=== PATIENT | male | born 1965 | race Two or more races ===

== ENCOUNTER 2025-02-11 10:04 | Inpatient (IN) | payer BC, OTHER ==
[~2025-02-11] VITALS: Ht 180.3 cm; Wt 100.3 kg
[2025-02-11 10:54] LABS: Hematocrit 46.6 % (41.0-53.0); Hemoglobin 16.0 g/dL (13.5-17.5); Mean Corpuscular Hemoglobin 29.7 pg (28.0-32.0); Mean Corpuscular Volume 86.3 fL (80.0-100.0); Nucleated Red Blood Cells % 0.1 %
[2025-02-11 11:01] LABS: Chloride 100 mmol/L (98-107); Potassium 3.7 mmol/L (3.5-5.1); Sodium 137 mmol/L (136-145)
[2025-02-11 11:02] LABS: Anion Gap 10 (5-15); Calcium 8.8 mg/dL (8.7-10.4); Carbon Dioxide 27 mmol/L (20-31)
[2025-02-11 11:07] LABS: BUN/Creatinine Ratio 12.4 (10.0-20.0); Blood Urea Nitrogen 11 mg/dL (9-23); Glucose 114 mg/dL (74-106)
--- NOTE | 2025-02-11 11:15 | ED.PDOC ---
GI ASSESSMENT HPI Comments 59 y/o M, with PMHx of CKF and HTN presents to the ED for CC of abdominal pain. Patient states, he has been experiencing diffuse abdominal pain with associated chills sudden onset, last night (02/10/25). Patient reports, he began to experience faint pain during the day which was then exacerbated following having dinner. Patient denies nausea, vomiting, diarrhea, or fever. No other symptoms or modifying factors are present at this time. Chief Complaint: Abdominal Pain Time Seen by MD: 11:00 Primary Care Provider: NONE Reviewed Notes: Nurses Notes, Medications, Allergies Allergies: Coded Allergies: NO KNOWN ALLERGIES (Unverified , 01/08/14) Home Meds No Active Prescriptions or Reported Meds Information Source: Patient Mode of Arrival: Ambulatory Timing: Days Duration: Since onset Prehospital treatment: None Quality: None Vomitus: None Severity: Moderate Recent: None Pain Location: Diffuse Modifying Factors: Nothing Associated sign and symptoms: Abdominal Pain Past Medical History PAST MEDICAL HISTORY: CKF, HTN Family History Family History: Unobtainable Social History Lives In: Home Constitutional: reports: chills; denies: diaphoresis, fatigue, fever, malaise, sweats, weakness, others EENTM: denies: blurred vision, double vision, ear bleeding, ear discharge, ear drainage, ear pain, ear ringing, eye pain, eye redness, hearing loss, mouth pain, mouth swelling, nasal discharge, nose bleeding, nose congestion, nose pain , photophobia, tearing, throat pain, throat swelling, voice changes, others Respiratory: denies: cough, hemoptysis, orthopnea, SOB at rest, shortness of breath, SOB with excertion, stridor, wheezing, others Cardiovascular: denies: chest pain, dizzy spells, diaphoresis, Dyspnea on exertion, edema, irregular heart beat, left arm pain, lightheadedness, palpitations, PND, syncope, others Gastrointestinal: reports: abdominal pain; denies: abdomen distended, blood streaked bowels, constipated, diarrhea, dysphagia, difficulty swallowing, hematemesis, melena, nausea, poor appetite, poor fluid intake, rectal bleeding, rectal pain, vomiting, others Genitourinary: denies: burning, dysuria, flank pain, frequency, hematuria, incontinence, penile discharge, penile sore, pain, testicle pain, testicle swelling, urgency, others Neurological: denies: dizziness, fainting, headache, left sided numbness, left sided weakness, numbness, paresthesia, pre-existing deficit, right sided numbness, right sided weakness, seizure, speech problems, tingling, tremors, weakness, others Musculoskeletal: denies: back pain, gout, joint pain, joint swelling, muscle pain, muscle stiffness, neck pain, others Integumetry: denies: bruises, change in color, change in hair/nails, dryness, laceration, lesions, lumps, rash, wounds, others Allergic/Immunocompromised: denies: Difficulty Healing, Frequent Infections, Hives, Itching, others Hematologic/Lymphatic: denies: anemia, blood clots, easy bleeding, easy bruising, swollen glands, others Endocrine: denies: excessive hunger, excessive sweating, excessive thirst, excessive urination, flushing, intolerance to cold, intolerance to heat, unexplained weight gain, unexplained weight loss, others Psychiatric: denies: anxiety, bipolar disorder, depression, hopeless, panic disorder, schizophrenia, sleepless, suicidal, others All Other Systems: Reviewed and Negative Physical Exam General Appearance: Moderate Distress HEENT: Normal ENT Inspection, Pharynx Normal, TMs Normal Neck: Full Range of Motion, Non-Tender, Normal, Normal Inspection Respiratory: Chest Non-Tender, Lungs Clear, No Accessory Muscle Use, No Respiratory Distress, Normal Breath Sounds Cardiovascular: No Edema, No JVD, No Murmur, No Gallop, Normal Peripheral Pulses, Regular Rate/Rhythm Breast Exam: Deferred Gastrointestinal: Diffuse Genitalia: Deferred Pelvic: Deferred Rectal: Deferred Extremities: No calf tenderness, Normal capillary refill, Normal inspection, Normal range of motion, Non-tender, No pedal edema Musculoskeletal : Apperance: Normal Neurologic: Alert, 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 Was a procedure done?: No GI differential Dx Differential Diagnosis: Constipation, Diverticular disease, Esophagitis, Gastritis/PUD, Gastroenteritis, Inflammatory BD X-Ray, Labs, Meds, VS Vital Signs Date Time Temp Pulse Resp B/P (MAP) Pulse Ox O2 Delivery O2 Flow Rate FiO2 02/11/25 14:30 98.4 80 18 124/54 (77) 96 98.4 02/11/25 14:30 80 18 96 Room Air 02/11/25 10:13 97.1 85 18 119/67 99 97.1 Lab Test 02/11/25 10:26 Range/Units White Blood Count 8.5 4.4-10.8 10^3/uL Red Blood Count 5.40 4.5-5.90 10^6/uL Hemoglobin 16.0 13.5-17.5 g/dL Hematocrit 46.6 41.0-53.0 % Mean Corpuscular Volume 86.3 80.0-100.0 fL Mean Corpuscular Hemoglobin 29.7 28.0-32.0 pg Mean Corpuscular Hemoglobin Concent 34.4 32.0-36.0 g/dL Red Cell Distribution Width 13.0 11.8-14.3 % Platelet Count 158 140-450 10^3/uL Mean Platelet Volume 10.0 6.9-10.8 fL Neutrophils (%) (Auto) 82.9 H 37.0-80.0 % Lymphocytes (%) (Auto) 9.5 L 10.0-50.0 % Monocytes (%) (Auto) 7.1 0.0-12.0 % Eosinophils (%) (Auto) 0.2 0.0-7.0 % Basophils (%) (Auto) 0.3 0.0-2.0 % Neutrophils # (Auto) 7.1 1.6-8.6 10 ^3/uL Lymphocytes # (Auto) 0.8 0.4-5.4 10 ^3/uL Monocytes # (Auto) 0.6 0-1.3 10 ^3/uL Eosinophils # (Auto) 0 0-0.8 10 ^3/uL Basophils # (Auto) 0 0-0.2 10 ^3/uL Nucleated Red Blood Cells 0.1 % Sodium Level 137 136-145 mmol/L Potassium Level 3.7 3.5-5.1 mmol/L Chloride Level 100 98-107 mmol/L Carbon Dioxide Level 27 20-31 mmol/L Anion Gap 10 5-15 Blood Urea Nitrogen 11 9-23 mg/dL Creatinine 0.89 0.700-1.30 mg/dL Glomerular Filtration Rate Calc 99 >90 mL/min BUN/Creatinine Ratio 12.4 10.0-20.0 Serum Glucose 114 H 74-106 mg/dL Calcium Level 8.8 8.7-10.4 mg/dL Patient alert. Complaining of abdominal pain. Vitals stable. Answering questions. Abdomen is soft. Continues to have abdominal pain. CT scan of the abdomen reviewed panniculitis Explained to the patient. Continue monitoring. Time of 1ST Reevaluation: 11:30 Reevaluation 1ST: Unchanged Patient Education/Counseling: Diagnosis, Treatment Family Education/Counseling: No Family Present SEPSIS Sepsis Screen Date sepsis recognized/suspect: Feb 11, 2025 Time Sepsis recognized/suspect: 101 Recent Procedure: No On Antibiotic Therapy: No Respiratory Rate >20: No Heart Rate >90: No Temp<36 C (96.8 F) or >38.3 C: No SBP <90 or MAP <65 mmHG: No New Acute Mental Status Change: No Is the patient on CPAP, BIPAP,: No Physician Orders Ct Ab Pel Wo Con-No Oral Or Iv (02/11/25 14:28) Vital Signs Date Time Temp Pulse Resp B/P (MAP) Pulse Ox O2 Delivery O2 Flow Rate FiO2 02/11/25 14:30 98.4 80 18 124/54 (77) 96 98.4 02/11/25 14:30 80 18 96 Room Air 02/11/25 10:13 97.1 85 18 119/67 99 97.1 Laboratory Tests Test 02/11/25 10:26 White Blood Count 8.5 10^3/uL (4.4-10.8) Departure 1 Departure Time of Disposition: 16:20 Impression: Primary Impression: Acute abdominal pain Additional Impression: Panniculitis Disposition: ADMITTED INPATIENT Admit to: Med Surg Condition: Guarded e-Prescriptions No Active Prescriptions or Reported Meds Critical Care Note Critical Care Time?: No Stability Stability form required: No Heart Score Heart Score: Heart Score Response (Comments) Value History N/A 0 EKG N/A 0 Age N/A 0 Risk Factors N/A 0 Troponin N/A 0 Total 0 I personally scribed for MAXIMILIANO JOYNER MD ([email or web address]) on 02/11/25 at 11:15. Electronically submitted by Tamia Middleton [email or web address]). MAXIMILIANO JOYNER MD Feb 11, 2025 11:15
--- NOTE | 2025-02-11 15:11 | DVH ---
CLINICAL HISTORY: colitis TECHNIQUE: CT of the abdomen and pelvis was performed without IV contrast. This exam was performed ac cording to our departmental dose optimization program. Up-to-date CT equipment and radiation dose red uction techniques are utilized as appropriate. CTDI 19.9 DLP 1309 COMPARISON: None FINDINGS: Abdomen/Pelvis: The spleen, pancreas, adrenal glands, kidneys, bladder, and prostate gland are grossly unremarkable. There is diffuse hepatic steatosis. The gallbladder is absent. The abdominal aorta is normal in course and caliber. There are minimal aortic atherosclerotic calcifi cations. There is no free intraperitoneal air or fluid. There is [id number] inflammation within the mese ntery. There is no enlarged abdominal pelvic lymph node. There is no bowel wall thickening or dilatation. The appendix is normal. Other: The imaged lower thorax demonstrates borderline cardiomegaly and breathing changes. No acute osseous abnormality is evident. Impression: No acute noncontrast CT abnormality in the abdomen or pelvis. Diffuse hepatic steatosis. Mesenteric panniculitis. Cholecystectomy.
[2025-02-11] MEDS ORDERED: ONDANSETRON HCL 4 MG/2 ML VIAL IV PRN (17:00)
[2025-02-11] MEDS ORDERED: ACETAMINOPHEN 325 MG TAB PO PRN (17:00)
--- NOTE | 2025-02-11 18:09 | DVHHP2 ---
History of Present Illness Reason for Visit: Abdominal pain History of Present Illness 9-year-old male presents for evaluation of abdominal pain. Patient endorses a one day history of epigastric abdominal pain that radiates to his left lower quadrant. Describes the pain as sharp/cramping/bloating. He also associates episodes of nausea without emesis. No fever or chills. No diarrhea. Past Medical History Denies Past Surgical History Denies Family History Noncontributory Smoke: No ALCOHOL: occassional Drugs: None Lives: with Family Review of Systems Review of Systems Review of systems are currently negative otherwise addressed in HPI. Allergies: Coded Allergies: NO KNOWN ALLERGIES (Unverified , 01/08/14) Medications Current Medications Medications Dose Ordered Sig/Deuce Route Start Time Stop Time Status Last Admin Dose Admin Ceftriaxone Sodium 50 ml @ 100 mls/hr DAILY@09 IV 02/12/25 09:00 Pantoprazole Sodium 40 mg DAILY IV 02/12/25 10:00 Acetaminophen/ Hydrocodone Bitart 1 tab Q4HP PRN PO 02/11/25 17:00 Ondansetron HCl 4 mg Q4HP PRN IV 02/11/25 17:00 Acetaminophen 650 mg Q6HP PRN PO 02/11/25 17:00 Exam Vital Signs Vital Signs Date Time Temp Pulse Resp B/P (MAP) Pulse Ox O2 Delivery O2 Flow Rate FiO2 02/11/25 17:45 98.0 75 20 110/72 (85) 96 98.0 02/11/25 14:30 Room Air Exam Gen: 59-year-old male in mild distress Skin: Warm, dry, normal color and texture, no rash. HEENT: Normocephalic atraumatic, mucous membranes moist and pink. Neck: Cervical and supraclavicular nodes normal without enlargement, trachea is midline, thyroid gland is normal without masses. Pulmonary: Clear to auscultation and percussion bilaterally. Cardiac: Regular rate and rhythm. No murmur Abdomen: Soft, nontender, nondistended, bowel sounds present all 4 quadrants, no guarding, no rigidity, no organomegaly. Extremities: No cyanosis, clubbing, no edema Neuro: Cranial nerves II through XII grossly intact, normal affect and speech, no focal motor deficits. Labs/Xrays ORDERING PHYSICIAN: MAXIMILIANO JOYNER MD PROCEDURE(s): ABPL - CT AB PEL WO CON-NO ORAL OR IV REASON: colitis ORDER NUMBER(s): [id number], ACCESSION NUMBER(s): [id number] CLINICAL HISTORY: colitis TECHNIQUE: CT of the abdomen and pelvis was performed without IV contrast. This exam was performed according to our departmental dose optimization program. Up-to-date CT equipment and radiation dose reduction techniques are utilized as appropriate. CTDI 19.9 DLP 1309 COMPARISON: None FINDINGS: Abdomen/Pelvis: The spleen, pancreas, adrenal glands, kidneys, bladder, and prostate gland are grossly unremarkable. There is diffuse hepatic steatosis. The gallbladder is absent. The abdominal aorta is normal in course and caliber. There are minimal aortic atherosclerotic calcifications. There is no free intraperitoneal air or fluid. There is zucv-ob-gkevhhie inflammation within the mesentery. There is no enlarged abdominal pelvic lymph node. There is no bowel wall thickening or dilatation. The appendix is normal. Other: The imaged lower thorax demonstrates borderline cardiomegaly and breathing changes. No acute osseous abnormality is evident. Impression: No acute noncontrast CT abnormality in the abdomen or pelvis. Diffuse hepatic steatosis. Mesenteric panniculitis. Cholecystectomy. Labs Test 02/11/25 10:26 Range/Units White Blood Count 8.5 4.4-10.8 10^3/uL Red Blood Count 5.40 4.5-5.90 10^6/uL Hemoglobin 16.0 13.5-17.5 g/dL Hematocrit 46.6 41.0-53.0 % Mean Corpuscular Volume 86.3 80.0-100.0 fL Mean Corpuscular Hemoglobin 29.7 28.0-32.0 pg Mean Corpuscular Hemoglobin Concent 34.4 32.0-36.0 g/dL Red Cell Distribution Width 13.0 11.8-14.3 % Platelet Count 158 140-450 10^3/uL Mean Platelet Volume 10.0 6.9-10.8 fL Neutrophils (%) (Auto) 82.9 H 37.0-80.0 % Lymphocytes (%) (Auto) 9.5 L 10.0-50.0 % Monocytes (%) (Auto) 7.1 0.0-12.0 % Eosinophils (%) (Auto) 0.2 0.0-7.0 % Basophils (%) (Auto) 0.3 0.0-2.0 % Neutrophils # (Auto) 7.1 1.6-8.6 10 ^3/uL Lymphocytes # (Auto) 0.8 0.4-5.4 10 ^3/uL Monocytes # (Auto) 0.6 0-1.3 10 ^3/uL Eosinophils # (Auto) 0 0-0.8 10 ^3/uL Basophils # (Auto) 0 0-0.2 10 ^3/uL Nucleated Red Blood Cells 0.1 % Sodium Level 137 136-145 mmol/L Potassium Level 3.7 3.5-5.1 mmol/L Chloride Level 100 98-107 mmol/L Carbon Dioxide Level 27 20-31 mmol/L Anion Gap 10 5-15 Blood Urea Nitrogen 11 9-23 mg/dL Creatinine 0.89 0.700-1.30 mg/dL Glomerular Filtration Rate Calc 99 >90 mL/min BUN/Creatinine Ratio 12.4 10.0-20.0 Serum Glucose 114 H 74-106 mg/dL Calcium Level 8.8 8.7-10.4 mg/dL SEPSIS Sepsis Screen Date sepsis recognized/suspect: Feb 11, 2025 Time Sepsis recognized/suspect: 1745 Recent Procedure: No On Antibiotic Therapy: No Respiratory Rate >20: No Heart Rate >90: No Temp<36 C (96.8 F) or >38.3 C: No SBP <90 or MAP <65 mmHG: No New Acute Mental Status Change: No Is the patient on CPAP, BIPAP,: No Physician Orders Ct Ab Pel Wo Con-No Oral Or Iv (02/11/25 14:28) Ceftriaxone 1gm/50ml (Rocephin) (02/12/25 09:00) * Gi Dvh Roof Truss Detailer (02/11/25 16:59) Pantoprazole (Protonix) (02/12/25 10:00) Basic Metabolic Panel (02/12/25 04:00) Lipase (02/11/25 16:59) Admit (02/11/25 16:59) Hydrocodone-Acet 5/325mg Tab ([place] 5/32 (02/11/25 17:00) Ondansetron Hcl (Zofran) (02/11/25 17:00) Complete Blood Count (02/12/25 04:00) Condition: Stable (02/11/25 16:59) Acetaminophen Tablet (Tylenol Tablet) (02/11/25 17:00) Clear Liq Diet (02/11/25 Dinner) Bedrest With Bathroom Privileg (02/11/25 16:59) Vital Signs Date Time Temp Pulse Resp B/P (MAP) Pulse Ox O2 Delivery O2 Flow Rate FiO2 02/11/25 17:45 98.0 75 20 110/72 (85) 96 98.0 02/11/25 14:30 98.4 80 18 124/54 (77) 96 98.4 02/11/25 14:30 80 18 96 Room Air 02/11/25 10:13 97.1 85 18 119/67 99 97.1 Laboratory Tests Test 02/11/25 10:26 White Blood Count 8.5 10^3/uL (4.4-10.8) Assessment/Plan Assessment/Plan Assessment Acute abdominal pain Plan Admit the patient to [facility] to the hospitalist Clear liquid diet GI consultation Maintenance IV fluids Protonix/Zofran Continue treatment per orders. Plan discussed with: Patient My Orders Orders - MABEL DEWITT AGATERESA Procedure Category Date Status Time Ceftriaxone 1gm/50ml PHA 02/12/25 In Process (Rocephin) 09:00 * Gi Dvh Roof Truss Detailer CONS 02/11/25 Transmitted 16:59 Pantoprazole PHA 02/12/25 In Process (Protonix) 10:00 Basic Metabolic Panel LAB 02/12/25 Verified 04:00 Lipase LAB 02/11/25 In Process 16:59 Admit ADMIT 02/11/25 Transmitted 16:59 Hydrocodone-Acet PHA 02/11/25 In Process 5/325mg Tab ([place] 17:00 Ondansetron Hcl PHA 02/11/25 In Process (Zofran) 17:00 Complete Blood Count LAB 02/12/25 Verified 04:00 Condition: Stable BEN 02/11/25 In Process 16:59 Acetaminophen Tablet PHA 02/11/25 In Process (Tylenol Tablet) 17:00 Clear Liq Diet DIET 02/11/25 Transmitted Dinner Bedrest With Bathroom BEN 02/11/25 In Process Privileg 16:59 Date of Service: Feb 11, 2025 Billing Provider: MABEL DEWITT Common Visit Codes: [id number] INP/OBS CARE (MOD) MABEL DEWITT Feb 11, 2025 18:09
[2025-02-11 18:34] VITALS: BP 110/69; PULSE 69; RESP 18; TEMP 99.2; O2SAT 98
[2025-02-11] MEDS: PANTOPRAZOLE 40 MG/10 ML VIAL INJ IV ONE (18:54)
[2025-02-11 21:00] VITALS: BP 138/70; PULSE 65; RESP 18; TEMP 98.9; O2SAT 96
[2025-02-11] MEDS: HYDROcodone-ACET 5/325MG TAB PO PRN (23:03)
[2025-02-11 23:10] VITALS: BP 116/63; PULSE 54; RESP 17; TEMP 97.3; O2SAT 96
[2025-02-12 00:33] VITALS: BP 116/63; PULSE 54; PULSE 57; RESP 17; TEMP 97.3; O2SAT 96
[2025-02-12 05:00] VITALS: BP 129/82; PULSE 47; RESP 18; TEMP 97.2; O2SAT 100
[2025-02-12 07:44] LABS: Hematocrit 45.3 % (41.0-53.0); Hemoglobin 15.6 g/dL (13.5-17.5); Mean Corpuscular Hemoglobin 29.5 pg (28.0-32.0); Mean Corpuscular Volume 85.6 fL (80.0-100.0); Nucleated Red Blood Cells % 0.2 %
[2025-02-12 07:56] LABS: Chloride 101 mmol/L (98-107); Potassium 4.7 mmol/L (3.5-5.1); Sodium 139 mmol/L (136-145)
[2025-02-12 07:57] LABS: Anion Gap 7 (5-15); Calcium 8.8 mg/dL (8.7-10.4); Carbon Dioxide 31 mmol/L (20-31)
[2025-02-12 08:02] LABS: BUN/Creatinine Ratio 13.5 (10.0-20.0); Blood Urea Nitrogen 12 mg/dL (9-23); Glucose 92 mg/dL (74-106)
[2025-02-12 09:00] VITALS: BP 151/87; PULSE 50; RESP 16; TEMP 97; O2SAT 95
[2025-02-12] MEDS: PANTOPRAZOLE 40 MG/10 ML VIAL INJ IV SCH (09:45)
[2025-02-12 13:00] VITALS: BP 122/80; PULSE 50; RESP 18; TEMP 98.8; O2SAT 97
--- NOTE | 2025-02-12 19:31 | DVHINCON2 ---
Date of service: Feb 12, [address] Esteban Reason for Consultation Abdominal pain History of Present Illness 59-year-old male with complaints of Abdominal pain in the epigastric area since since dinner denies nausea vomiting diarrhea the pain has been progressively getting worse the pain has been going on for about three months and has got complaints of abdominal distention and anorexia Past Medical History Chronic renal failure hypertension Past Surgical History Cholecystectomy Family History: Alcoholism Family History Noncontributory Social History Denies any drinking or smoking Allergies: Coded Allergies: NO KNOWN ALLERGIES (Unverified , 01/08/14) Home Meds No Active Prescriptions or Reported Meds Current Medications Current Medications Medications (Trade) Dose Ordered Sig/Deuce Route PRN Reason Start Time Stop Time Status Last Admin Ceftriaxone Sodium 50 ml @ 100 mls/hr DAILY@09 IV 02/12/25 09:00 02/12/25 09:45 Pantoprazole Sodium (Protonix) 40 mg DAILY IV 02/12/25 10:00 02/12/25 09:45 Metronidazole 100 ml @ 100 mls/hr Q8HR IV 02/12/25 14:00 02/12/25 16:13 Review of Systems Non contribute Vital Signs Vital Signs Date Time Temp Pulse Resp B/P (MAP) Pulse Ox O2 Delivery O2 Flow Rate FiO2 02/12/25 13:00 98.8 50 18 122/80 (94) 97 98.8 02/12/25 08:00 Room Air* 0 21 Physical Exam Moderately built and nourished male in no acute distress except for some abdominal discomfort in the epigastrium HEENT examination no pallor no icterus Lungs clear Cardiovascular unremarkable Abdomen is soft mild fullness and tenderness in the epigastrium no rigidity no guarding no masses Extremities no edema Neuro grossly intact Labs white count is 8.5 hemoglobin is 16 Labs/Diagnostic Data Labs Test 02/12/25 07:06 02/11/25 10:26 Range/Units White Blood Count 6.1 # 4.4-10.8 10^3/uL Red Blood Count 5.30 4.5-5.90 10^6/uL Hemoglobin 15.6 13.5-17.5 g/dL Hematocrit 45.3 41.0-53.0 % Mean Corpuscular Volume 85.6 80.0-100.0 fL Mean Corpuscular Hemoglobin 29.5 28.0-32.0 pg Mean Corpuscular Hemoglobin Concent 34.5 32.0-36.0 g/dL Red Cell Distribution Width 13.2 11.8-14.3 % Platelet Count 125 L 140-450 10^3/uL Mean Platelet Volume 8.6 6.9-10.8 fL Neutrophils (%) (Auto) 58.2 37.0-80.0 % Lymphocytes (%) (Auto) 26.6 10.0-50.0 % Monocytes (%) (Auto) 12.8 H 0.0-12.0 % Eosinophils (%) (Auto) 2.0 0.0-7.0 % Basophils (%) (Auto) 0.4 0.0-2.0 % Neutrophils # (Auto) 3.6 1.6-8.6 10 ^3/uL Lymphocytes # (Auto) 1.6 0.4-5.4 10 ^3/uL Monocytes # (Auto) 0.8 0-1.3 10 ^3/uL Eosinophils # (Auto) 0.1 0-0.8 10 ^3/uL Basophils # (Auto) 0 0-0.2 10 ^3/uL Nucleated Red Blood Cells 0.2 % Sodium Level 139 136-145 mmol/L Potassium Level 4.7 3.5-5.1 mmol/L Chloride Level 101 98-107 mmol/L Carbon Dioxide Level 31 20-31 mmol/L Anion Gap 7 5-15 Blood Urea Nitrogen 12 9-23 mg/dL Creatinine 0.89 0.700-1.30 mg/dL Glomerular Filtration Rate Calc 99 >90 mL/min BUN/Creatinine Ratio 13.5 10.0-20.0 Serum Glucose 92 74-106 mg/dL Calcium Level 8.8 8.7-10.4 mg/dL Lipase 36 12-53 U/L Assessment 59-year-old male with complaints of abdominal pain in the epigastrium after dinner has nausea anorexia unable to keep anything down the pain has been going on for about three months. He has got kidney disease and and hypertension CT scan without contrast is unremarkable no oral contrast given Possibilities are esophagitis gastritis possibility of a biliary tract disease and pancreatitis also can not be excluded Plan/Recommendation We will recommend CMP and lipase and if if abnormal we will recommend MRI MRCP patient is status post cholecystectomy If symptoms persist may need an MRI especially with a patent especially with panic colitis and other pathology We will treat with PPIs in the mean time Plan discussed with: Patient LESLY HINTON MD Feb 12, 2025 19:31
[2025-02-12 21:00] VITALS: BP 120/66; PULSE 50; RESP 18; TEMP 97.8; O2SAT 97
[2025-02-13 01:01] VITALS: BP 133/47; PULSE 50; RESP 18; TEMP 99; O2SAT 96
[2025-02-13 04:41] VITALS: BP 133/84; PULSE 50; RESP 18; TEMP 97.5; O2SAT 98
[2025-02-13 06:48] LABS: Hematocrit 42.0 % (41.0-53.0); Hemoglobin 14.7 g/dL (13.5-17.5); Mean Corpuscular Hemoglobin 29.8 pg (28.0-32.0); Mean Corpuscular Volume 85.5 fL (80.0-100.0); Nucleated Red Blood Cells % 0.0 %
[2025-02-13 06:54] LABS: Chloride 105 mmol/L (98-107); Potassium 4.1 mmol/L (3.5-5.1); Sodium 142 mmol/L (136-145)
[2025-02-13 06:55] LABS: Anion Gap 7 (5-15); Carbon Dioxide 30 mmol/L (20-31)
[2025-02-13 07:00] LABS: Glucose 93 mg/dL (74-106)
[2025-02-13 07:01] LABS: BUN/Creatinine Ratio 11.5 (10.0-20.0)
[2025-02-13 07:25] LABS: Blood Urea Nitrogen 9 mg/dL (9-23); Calcium 8.6 mg/dL (8.7-10.4)
[2025-02-13 09:00] VITALS: BP 153/62; PULSE 90; RESP 16; TEMP 97.6; O2SAT 96
[2025-02-13 12:38] VITALS: BP 137/80; PULSE 50; RESP 18; TEMP 97.6; O2SAT 97
--- NOTE | 2025-02-13 15:00 | DVHPN2 ---
Subjective The patient is seen and examined at bedside. Complain of abdominal pain. at bedside. Reviewed: Care Plan, H&P, Labs, Medications, Previous Orders, Radiology Changes from previous H/P or p: No Changes Objective Vitals Vital Signs Date Time Temp Pulse Resp B/P (MAP) Pulse Ox O2 Delivery O2 Flow Rate FiO2 02/13/25 12:38 97.6 50 18 137/80 (99) 97 97.6 02/13/25 07:45 Room Air* 0 21 Intake/Output Intake and Output 02/13/25 07:00 Intake Total 4710 ml Balance 4710 ml Intake Oral 4360 ml IV Total 350 ml # Voids 11 General Appearance: Alert, Oriented X3, Cooperative, No acute distress HEENT: Atraumatic, PERRLA, EOMI, Mucous membr. moist/pink Neck: Supple Lungs: Clear to auscultation, Normal air movement Chest/Breasts: Discharge, Lesions, Lumps Cardiovascular: Normal S1, Normal S2, No murmurs, Gallops, Rubs Abdomen: Normal bowel sounds, Other Neuro: Cranial nerves 3-12 NL Lymph: Lymphadenopathy Medications Current Medications Medications Dose Ordered Sig/Deuce Route Start Time Stop Time Status Last Admin Dose Admin Ceftriaxone Sodium 50 ml @ 100 mls/hr DAILY@09 IV 02/12/25 09:00 02/13/25 09:56 100 MLS/HR Pantoprazole Sodium 40 mg DAILY IV 02/12/25 10:00 02/13/25 09:56 40 MG Acetaminophen/ Hydrocodone Bitart 1 tab Q4HP PRN PO 02/11/25 17:00 02/11/25 23:03 1 TAB Ondansetron HCl 4 mg Q4HP PRN IV 02/11/25 17:00 Acetaminophen 650 mg Q6HP PRN PO 02/11/25 17:00 Metronidazole 100 ml @ 100 mls/hr Q8HR IV 02/12/25 14:00 02/13/25 14:00 100 MLS/HR Laboratory Results Laboratory Tests 02/13/25 05:26 Chemistry Test 02/13/25 05:26 Calcium Level 8.6 mg/dL (8.7-10.4) L Labs and/or images reviewed: Labs reviewed by me Assessment/Plan Assessment/Plan Severe abdominal pain Imaging studies showed Mesenteric panniculitis. Continuing current management. Continuing with IV Dilaudid and [place]. Continuing with empiric IV antibiotic Levaquin and Flagyl. This medical document was created using an electronic medical record system with [employer] direct computerized dictation system. Although this document has been carefully reviewed, there may still be some phonetic and typographical errors. These areas are purely typographical due to imperfections of the software programs, and do not reflect any compromise in the patient's medical care. Plan discussed with: Patient Date of Service: Feb 12, 2025 Billing Provider: DEMARCUS DAILY MD Common Visit Codes: [id number] INP/OBS CARE(HIGH) DEMARCUS DAILY MD Feb 13, 2025 15:00
--- NOTE | 2025-02-13 15:00 | DVHPN2 ---
Subjective The patient is seen and examined at bedside. Still complain of abdominal pain. GI specialist has see the patient. And recommend EGD. Reviewed: Care Plan, H&P, Labs, Medications, Previous Orders, Radiology Changes from previous H/P or p: No Changes Objective Vitals Vital Signs Date Time Temp Pulse Resp B/P (MAP) Pulse Ox O2 Delivery O2 Flow Rate FiO2 02/13/25 12:38 97.6 50 18 137/80 (99) 97 97.6 02/13/25 07:45 Room Air* 0 21 Intake/Output Intake and Output 02/13/25 07:00 Intake Total 4710 ml Balance 4710 ml Intake Oral 4360 ml IV Total 350 ml # Voids 11 Medications Current Medications Medications Dose Ordered Sig/Deuce Route Start Time Stop Time Status Last Admin Dose Admin Ceftriaxone Sodium 50 ml @ 100 mls/hr DAILY@09 IV 02/12/25 09:00 02/13/25 09:56 100 MLS/HR Pantoprazole Sodium 40 mg DAILY IV 02/12/25 10:00 02/13/25 09:56 40 MG Acetaminophen/ Hydrocodone Bitart 1 tab Q4HP PRN PO 02/11/25 17:00 02/11/25 23:03 1 TAB Ondansetron HCl 4 mg Q4HP PRN IV 02/11/25 17:00 Acetaminophen 650 mg Q6HP PRN PO 02/11/25 17:00 Metronidazole 100 ml @ 100 mls/hr Q8HR IV 02/12/25 14:00 02/13/25 14:00 100 MLS/HR Laboratory Results Laboratory Tests 02/13/25 05:26 Chemistry Test 02/13/25 05:26 Calcium Level 8.6 mg/dL (8.7-10.4) L Assessment/Plan Assessment/Plan Severe abdominal pain Imaging studies showed Mesenteric panniculitis. Continuing current management. Continuing with IV Dilaudid and [place]. Continuing with empiric IV antibiotic Levaquin and Flagyl. This medical document was created using an electronic medical record system with [employer] direct computerized dictation system. Although this document has been carefully reviewed, there may still be some phonetic and typographical errors. These areas are purely typographical due to imperfections of the software programs, and do not reflect any compromise in the patient's medical care. Plan discussed with: Patient Date of Service: Feb 13, 2025 Billing Provider: DEMARCUS DAILY MD Common Visit Codes: [id number] INP/OBS CARE(HIGH) DEMARCUS DAILY MD Feb 13, 2025 15:00
--- NOTE | 2025-02-13 15:43 | DVHPN2 ---
Progress Note - Dictate Date Seen: Feb 13, 2025 Has the PT tested + for MRSA If YES, has PT been informed?: Yes Medical Necessity Reason Pt with a Central, PICC or Fol: No Subjective Patient continues to have abdominal discomfort with GERD symptoms. Slightly better but still persistent problems occasional dysphagia vital signs Vital Sign Date Time Temp Pulse Resp B/P (MAP) Pulse Ox O2 Delivery O2 Flow Rate FiO2 02/13/25 12:38 97.6 50 18 137/80 (99) 97 97.6 02/13/25 07:45 Room Air* 0 21 Total Intake and Output 02/12/25 02/12/25 02/13/25 15:00 23:00 07:00 Intake Total 50 ml 4160 ml 500 ml Balance 50 ml 4160 ml 500 ml medications Current Medications Medications Dose Ordered Sig/Deuce Route Start Time Stop Time Status Last Admin Dose Admin Ceftriaxone Sodium 50 ml @ 100 mls/hr DAILY@09 IV 02/12/25 09:00 02/13/25 09:56 100 MLS/HR Pantoprazole Sodium 40 mg DAILY IV 02/12/25 10:00 02/13/25 09:56 40 MG Acetaminophen/ Hydrocodone Bitart 1 tab Q4HP PRN PO 02/11/25 17:00 02/11/25 23:03 1 TAB Ondansetron HCl 4 mg Q4HP PRN IV 02/11/25 17:00 Acetaminophen 650 mg Q6HP PRN PO 02/11/25 17:00 Metronidazole 100 ml @ 100 mls/hr Q8HR IV 02/12/25 14:00 02/13/25 14:00 100 MLS/HR objective Tenderness in the epigastrium no rigidity no guarding no masses laboratory and microbiology Laboratory Tests 02/13/25 05:26 Test 02/13/25 05:26 Range/Units Serum Glucose 93 74-106 mg/dL Assessment/Plan 59-year-old male with complaints of abdominal pain in the epigastrium after dinner has nausea anorexia unable to keep anything down the pain has been going on for about three months. He has got kidney disease and and hypertension CT scan without contrast is unremarkable no oral contrast given LFT lipase are normal patient has to take continuously on a stone PPIs still not getting better Impression severe GERD rule out other pathology Plans We will recommend EGD evaluation and then further workup and treatment accordingly the procedure risks benefits alternatives explained to the patient and agreeable for the same Thank you DR Hernández Plan discussed with: Patient LESLY HERNÁNDEZ MD Feb 13, 2025 15:43
[2025-02-13 16:52] VITALS: BP 160/80; PULSE 52; RESP 18; TEMP 98.8; O2SAT 99
[2025-02-13 21:00] VITALS: BP 139/84; PULSE 50; RESP 18; TEMP 97.3; O2SAT 97
[2025-02-14] VITALS (8 sets, daily range): BP systolic 109–148; BP diastolic 58–83; PULSE 42–89; RESP 15–18; TEMP 97.4–98.3; O2SAT 91–100
[2025-02-14 06:05] LABS: Hematocrit 41.9 % (41.0-53.0); Hemoglobin 14.8 g/dL (13.5-17.5); Mean Corpuscular Hemoglobin 30.4 pg (28.0-32.0); Mean Corpuscular Volume 86.0 fL (80.0-100.0); Nucleated Red Blood Cells % 0.4 %
[2025-02-14 06:23] LABS: Anion Gap 8 (5-15); Carbon Dioxide 27 mmol/L (20-31); Chloride 106 mmol/L (98-107); Potassium 4.3 mmol/L (3.5-5.1); Sodium 141 mmol/L (136-145)
[2025-02-14 06:24] LABS: Calcium 8.7 mg/dL (8.7-10.4)
[2025-02-14 06:29] LABS: BUN/Creatinine Ratio 7.7 (10.0-20.0); Glucose 94 mg/dL (74-106)
[2025-02-14 06:37] LABS: Blood Urea Nitrogen 6 mg/dL (9-23)
[2025-02-14] MEDS ORDERED: HYDR-4902 PO (14:37)
[2025-02-14] MEDS ORDERED: LEVO500T91 PO (14:37)
[2025-02-14] MEDS ORDERED: METR-344 PO (14:37)
--- NOTE | 2025-02-14 14:39 | DVHDS2 ---
Discharge Summary Date of Admission Feb 11, 2025 at 16:59 Date of Discharge: Feb 14, 2025 Labs/Diagnostic Data: Laboratory Results Test 02/14/25 14:03 02/14/25 05:26 02/11/25 10:26 White Blood Count 5.1 10^3/uL (4.4-10.8) Red Blood Count 4.88 10^6/uL (4.5-5.90) Hemoglobin 14.8 g/dL (13.5-17.5) Hematocrit 41.9 % (41.0-53.0) Mean Corpuscular Volume 86.0 fL (80.0-100.0) Mean Corpuscular Hemoglobin 30.4 pg (28.0-32.0) Mean Corpuscular Hemoglobin Concent 35.4 g/dL (32.0-36.0) Red Cell Distribution Width 12.6 % (11.8-14.3) Platelet Count 158 10^3/uL (140-450) Mean Platelet Volume 9.6 fL (6.9-10.8) Neutrophils (%) (Auto) 57.1 % (37.0-80.0) Lymphocytes (%) (Auto) 30.2 % (10.0-50.0) Monocytes (%) (Auto) 10.3 % (0.0-12.0) Eosinophils (%) (Auto) 2.1 % (0.0-7.0) Basophils (%) (Auto) 0.3 % (0.0-2.0) Neutrophils # (Auto) 2.9 10 ^3/uL (1.6-8.6) Lymphocytes # (Auto) 1.6 10 ^3/uL (0.4-5.4) Monocytes # (Auto) 0.5 10 ^3/uL (0-1.3) Eosinophils # (Auto) 0.1 10 ^3/uL (0-0.8) Basophils # (Auto) 0 10 ^3/uL (0-0.2) Nucleated Red Blood Cells 0.4 % Sodium Level 141 mmol/L (136-145) Potassium Level 4.3 mmol/L (3.5-5.1) Chloride Level 106 mmol/L (98-107) Carbon Dioxide Level 27 mmol/L (20-31) Anion Gap 8 (5-15) Blood Urea Nitrogen 6 mg/dL (9-23) Creatinine 0.78 mg/dL (0.700-1.30) Glomerular Filtration Rate Calc 103 mL/min (>90) BUN/Creatinine Ratio 7.7 (10.0-20.0) Serum Glucose 94 mg/dL (74-106) Calcium Level 8.7 mg/dL (8.7-10.4) Lipase 36 U/L (12-53) Other Laboratory Tests 02/14/25 05:26 Final Diagnosis/Problems List Abdominal pain Discharge Disposition: Home Discharge Instruct/Medications Diet: Regular Activity: No Restrictions, As Tolerated Follow Up/Referral: pcp 1-2 weeks Medications: See med list Scheduled Levofloxacin Hemihydrate (Levaquin 500 Mg), 1 TAB PO DAILY Metronidazole (Flagyl), 1 TAB PO TID Pantoprazole Sodium Sesquihydr (Protonix), 40 MG PO DAILY Scheduled PRN Hydrocodone-Acetaminophen (Hydrocodone Bitartrate/AC 5-325 mg), 1 TAB PO Q6HPRN PRN Discharge Statement: "Patient was advised to return to the ER or call 911 if any headaches, dizziness, shortness of breath, chest pain, abdominal pain, bleeding, fevers, or worsening of medical condition. Patient was counseled about treatment plan, medications, possible side effects, patientverbalized understanding. All questions were answered to the best of my ability. This discharge took greater then 30 minutes in planning, reviewing documentation, counseling the patient, and discussing with other team members." ASSESSMENT ASSESSMENT Assessment Abdominal pain DEMARCUS DAILY MD Feb 14, 2025 14:39
[2025-02-14 14:56] LABS: INR 1.07 (0.9-1.15); Partial Thromboplastin Time 28.7 SEC (24.5-34.5); Prothrombin Time 11.3 sec (9.3-11.8)
--- NOTE | 2025-02-14 20:29 | DVHPN2 ---
Progress Note - Dictate Date Seen: Feb 14, 2025 Has the PT tested + for MRSA If YES, has PT been informed?: Yes Medical Necessity Reason Pt with a Central, PICC or Fol: No Subjective Patient continues to have significant abdominal discomfort with nausea anorexia unable to keep food occasional dysphagia vital signs Vital Sign Date Time Temp Pulse Resp B/P (MAP) Pulse Ox O2 Delivery O2 Flow Rate FiO2 02/14/25 17:00 98.3 50 15 148/78 (101) 97 98.3 02/14/25 07:30 Room Air* 0 21 Total Intake and Output 02/13/25 02/13/25 02/14/25 15:00 23:00 07:00 Intake Total 100 ml 2100 ml 600 ml Balance 100 ml 2100 ml 600 ml medications Current Medications Medications Dose Ordered Sig/Deuce Route Start Time Stop Time Status Last Admin Dose Admin Ceftriaxone Sodium 50 ml @ 100 mls/hr DAILY@09 IV 02/12/25 09:00 02/14/25 09:39 100 MLS/HR Pantoprazole Sodium 40 mg DAILY IV 02/12/25 10:00 02/14/25 09:40 40 MG Acetaminophen/ Hydrocodone Bitart 1 tab Q4HP PRN PO 02/11/25 17:00 02/11/25 23:03 1 TAB Ondansetron HCl 4 mg Q4HP PRN IV 02/11/25 17:00 Acetaminophen 650 mg Q6HP PRN PO 02/11/25 17:00 Metronidazole 100 ml @ 100 mls/hr Q8HR IV 02/12/25 14:00 02/14/25 14:01 100 MLS/HR objective Tenderness in the epigastrium Epigastric fullness no rigidity no guarding no masses laboratory and microbiology Laboratory Tests 02/14/25 05:26 Test 02/14/25 05:26 Range/Units Serum Glucose 94 74-106 mg/dL Assessment/Plan 59-year-old male with complaints of abdominal pain in the epigastrium after dinner has nausea anorexia unable to keep anything down the pain has been going on for about three months. He has got kidney disease and and hypertension CT scan without contrast is unremarkable no oral contrast given LFT lipase are normal patient has to take continuously PPIs still not getting better Because of the persistent symptoms patient was scheduled for an EGD today but unfortunately due to too many emergencies in the OR he could not be accommodated in the schedule by the in the OR Hence unfortunately had to cancel The case today will rearrange for tomorrow Dietary Evaluation Review Recommendations by RD: Dietary education by RD Comments: 1) Advance to 2g Na diet when medically feasible 2) Refer to outpatient RD for weight management 3) Follow-up with gastroenterology and cardiology 4) Continue to monitor I&O, labs, and skin integrity Expected Outcomes/Goals: 1) appetite and labs to improve 2) diet to advance 3) gradual wt loss 4) f/u in 3-5 days Plan discussed with: Patient LESLY HINTON MD Feb 14, 2025 20:28
--- NOTE | 2025-02-14 23:38 | DVHPN2 ---
Subjective The patient seen and examined at bedside. Still complain of abdominal pain. Waiting for EGD. Patient stated it will be done at 8pm today Reviewed: Care Plan, H&P, Labs, Medications, Previous Orders, Radiology Changes from previous H/P or p: No Changes Objective Vitals Vital Signs Date Time Temp Pulse Resp B/P (MAP) Pulse Ox O2 Delivery O2 Flow Rate FiO2 02/14/25 21:00 98.0 75 18 140/83 (102) 95 98.0 02/14/25 07:30 Room Air* 0 21 Intake/Output Intake and Output 02/14/25 07:00 Intake Total 2800 ml Balance 2800 ml Intake Oral 2600 ml IV Total 200 ml # Voids 16 # Bowel Movements 1 General Appearance: Alert, Oriented X3, Cooperative, No acute distress HEENT: PERRLA, EOMI, Mucous membr. moist/pink Lungs: Clear to auscultation, Normal air movement Cardiovascular: Regular rate, Normal S1, Normal S2, No murmurs, Gallops, Rubs Abdomen: Normal bowel sounds, Soft Neuro: Cranial nerves 3-12 NL Psych/Mental Status: Mental status NL Medications Current Medications Medications Dose Ordered Sig/Deuce Route Start Time Stop Time Status Last Admin Dose Admin Ceftriaxone Sodium 50 ml @ 100 mls/hr DAILY@09 IV 02/12/25 09:00 02/14/25 09:39 100 MLS/HR Pantoprazole Sodium 40 mg DAILY IV 02/12/25 10:00 02/14/25 09:40 40 MG Acetaminophen/ Hydrocodone Bitart 1 tab Q4HP PRN PO 02/11/25 17:00 02/11/25 23:03 1 TAB Ondansetron HCl 4 mg Q4HP PRN IV 02/11/25 17:00 Acetaminophen 650 mg Q6HP PRN PO 02/11/25 17:00 Metronidazole 100 ml @ 100 mls/hr Q8HR IV 02/12/25 14:00 02/14/25 22:21 100 MLS/HR Laboratory Results Laboratory Tests 02/14/25 05:26 Chemistry Test 02/14/25 05:26 Calcium Level 8.7 mg/dL (8.7-10.4) Coagulation Test 02/14/25 14:03 Prothrombin Time 11.3 sec (9.3-11.8) Prothrombin Time INR 1.07 (0.9-1.15) Activated Partial Thromboplast Time 28.7 SEC (24.5-34.5) Assessment/Plan Assessment/Plan Severe abdominal pain Imaging studies showed Mesenteric panniculitis. Continuing current management. Continuing with IV Dilaudid and [place]. Continuing with empiric IV antibiotic Levaquin and Flagyl. Waiting for EGD to be done. Discharge when EGD done and patient result is normal. This medical document was created using an electronic medical record system with [employer] direct computerized dictation system. Although this document has been carefully reviewed, there may still be some phonetic and typographical errors. These areas are purely typographical due to imperfections of the software programs, and do not reflect any compromise in the patient's medical care. Plan discussed with: Patient My Orders Orders - DEMARCUS DAILY MD Procedure Category Date Status Time Communication Order ORDERS 02/14/25 Transmitted 20:00 Discharge DISCHARGE 02/15/25 Transmitted 14:38 Date of Service: Feb 14, 2025 Billing Provider: DEMARCUS DAILY MD Common Visit Codes: [id number] INP/OBS CARE(HIGH) DEMARCUS DAILY MD Feb 14, 2025 23:38
[2025-02-15] VITALS (7 sets, daily range): BP systolic 119–144; BP diastolic 54–87; PULSE 50–59; RESP 12–18; TEMP 36.6; O2SAT 97–100
[2025-02-15 08:08] LABS: Hematocrit 42.5 % (41.0-53.0); Hemoglobin 15.0 g/dL (13.5-17.5); Mean Corpuscular Hemoglobin 30.1 pg (28.0-32.0); Mean Corpuscular Volume 85.0 fL (80.0-100.0); Nucleated Red Blood Cells % 0.1 %
[2025-02-15 08:11] LABS: Anion Gap 9 (5-15); Carbon Dioxide 27 mmol/L (20-31); Chloride 104 mmol/L (98-107); Potassium 4.5 mmol/L (3.5-5.1); Sodium 140 mmol/L (136-145)
[2025-02-15 08:13] LABS: Calcium 9.1 mg/dL (8.7-10.4)
[2025-02-15 08:17] LABS: BUN/Creatinine Ratio 15.6 (10.0-20.0); Blood Urea Nitrogen 12 mg/dL (9-23); Glucose 83 mg/dL (74-106)
--- NOTE | 2025-02-15 12:17 | DVHDS2 ---
Discharge Summary Date of Admission Feb 11, 2025 at 16:59 Date of Discharge: Feb 15, 2025 Admitting Diagnosis Severe abdominal pain Imaging studies showed Mesenteric panniculitis. Labs/Diagnostic Data: Laboratory Results Test 02/15/25 07:04 02/14/25 14:03 02/11/25 10:26 White Blood Count 5.4 10^3/uL (4.4-10.8) Red Blood Count 5.00 10^6/uL (4.5-5.90) Hemoglobin 15.0 g/dL (13.5-17.5) Hematocrit 42.5 % (41.0-53.0) Mean Corpuscular Volume 85.0 fL (80.0-100.0) Mean Corpuscular Hemoglobin 30.1 pg (28.0-32.0) Mean Corpuscular Hemoglobin Concent 35.4 g/dL (32.0-36.0) Red Cell Distribution Width 12.6 % (11.8-14.3) Platelet Count 165 10^3/uL (140-450) Mean Platelet Volume 9.1 fL (6.9-10.8) Neutrophils (%) (Auto) 63.3 % (37.0-80.0) Lymphocytes (%) (Auto) 25.2 % (10.0-50.0) Monocytes (%) (Auto) 9.4 % (0.0-12.0) Eosinophils (%) (Auto) 1.8 % (0.0-7.0) Basophils (%) (Auto) 0.3 % (0.0-2.0) Neutrophils # (Auto) 3.4 10 ^3/uL (1.6-8.6) Lymphocytes # (Auto) 1.4 10 ^3/uL (0.4-5.4) Monocytes # (Auto) 0.5 10 ^3/uL (0-1.3) Eosinophils # (Auto) 0.1 10 ^3/uL (0-0.8) Basophils # (Auto) 0 10 ^3/uL (0-0.2) Nucleated Red Blood Cells 0.1 % Sodium Level 140 mmol/L (136-145) Potassium Level 4.5 mmol/L (3.5-5.1) Chloride Level 104 mmol/L (98-107) Carbon Dioxide Level 27 mmol/L (20-31) Anion Gap 9 (5-15) Blood Urea Nitrogen 12 mg/dL (9-23) Creatinine 0.77 mg/dL (0.700-1.30) Glomerular Filtration Rate Calc 103 mL/min (>90) BUN/Creatinine Ratio 15.6 (10.0-20.0) Serum Glucose 83 mg/dL (74-106) Calcium Level 9.1 mg/dL (8.7-10.4) Prothrombin Time 11.3 sec (9.3-11.8) Prothrombin Time INR 1.07 (0.9-1.15) Activated Partial Thromboplast Time 28.7 SEC (24.5-34.5) Lipase 36 U/L (12-53) Other Laboratory Tests 02/15/25 07:04 Brief Hx & Hospital Course: This is a 59 years old male come to emergency department because of severe abdominal pain for one day. The patient has a epigastric abdominal pain radiating to his lower quadrant. The patient said his pain is sharp with cramping and bloating. Patient also had nausea without vomiting. No fever or chill. No diarrhea. Patient's CT scan abdomen pelvis showed:No acute noncontrast CT abnormality in the abdomen or pelvis.Diffuse hepatic steatosis. Mesenteric panniculitis.Cholecystectomy. Patient was put on IV antibiotic with Rocephin and Flagyl. The patient continuing to have abdominal pain. GI specialist was consulted. EGD was done. Showed:proximal esophagus almost close to the mid esophageal junction there was a small superficial nodule of about 5 mm benign-looking biopsies taken with the cold biopsy forceps 1 cm Hiatal hernia. LA classification C Esophagitis distal esophagus. No Esophageal ulcer . No Esophageal stricture. No varices. Stomach:Fundus: Normal.Body and antrum In the body on the greater curvature aspect there was a polyp which was pedunculated of 1 cm long removed with the help of the hot snare .Polyp was friable and hence the biopsy was also done of the base of the polypectomy site Antral gastritis biopsies taken to ensure there was no H pylori or other pathology Pylorus normal Gastric polyp in the body of the stomach pedunculated 1 cm long removed by hot snare Small superficial nodule of 5 mm proximal esophagus close to the mid esophagus junction biopsies taken. Dr. Hernández recommend: Aggressive treatment with PPIs. Recommend repeat evaluation of the stomach in three months to evaluate for the esophageal nodule as well as a gastric polypectomy site. Symptoms persist we will recommend repeat CAT scan with oral and IV contrast as well as colonoscopy. I am going to discharge the patient home today. Activity as tolerated. Diet per home diet. Patient will have PPI in Flagyl to send home with. Follow up with primary care physician 1-2 weeks. Follow up with Dr. Hernández, GI specialist per schedule for polyp biopsy results. Activity as tolerated. Diet per home diet. Physical exam: HEENT: Normocephalic atraumatic pupils equal react to light and accommodation. Extraocular muscles intact, conjunctiva pink, oropharynx moist, no thrush, no exudate. Lymphatic: No lymphadenopathy Cardiovascular exam: S1, S2 was heard. No murmurs, rubs, gallops Lung: Clear on auscultation bilaterally, no wheeze, rale, rhonchi. GI: Abdominal soft, nondistended, nontenderness, positive bowel sounds. Extremity: No crepitus, cyanosis, edema. Pedal pulses present bilateral. Full range of motion. Skin: Normal turgor, no rash. Psych: Alert, oriented x3. Neurology: No focal deficits, cranial nerve II to XII grossly intact. This medical document was created using an electronic medical record system with [employer] direct computerized dictation system. Although this document has been carefully reviewed, there may still be some phonetic and typographical errors. These areas are purely typographical due to imperfections of the software programs, and do not reflect any compromise in the patient's medical care. Condition at Discharge: Stable Final Diagnosis/Problems List Severe abdominal pain Imaging studies showed Mesenteric panniculitis. Severe esophagitis Hiatal hernia Polyps of the gastric and duodenum area Discharge Disposition: Home Discharge Instruct/Medications Diet: Regular Activity: No Restrictions, As Tolerated Follow Up/Referral: pcp 1-2 weeks Medications: See med list Scheduled Levofloxacin Hemihydrate (Levaquin 500 Mg), 1 TAB PO DAILY Metronidazole (Flagyl), 1 TAB PO TID Pantoprazole Sodium Sesquihydr (Protonix), 40 MG PO DAILY Scheduled PRN Hydrocodone-Acetaminophen (Hydrocodone Bitartrate/AC 5-325 mg), 1 TAB PO Q6HPRN PRN Discharge Statement: "Patient was advised to return to the ER or call 911 if any headaches, dizziness, shortness of breath, chest pain, abdominal pain, bleeding, fevers, or worsening of medical condition. Patient was counseled about treatment plan, medications, possible side effects, patientverbalized understanding. All questions were answered to the best of my ability. This discharge took greater then 30 minutes in planning, reviewing documentation, counseling the patient, and discussing with other team members." ASSESSMENT ASSESSMENT Assessment Abdominal pain Date of Service: Feb 15, 2025 Billing Provider: DEMARCUS DAILY MD Common Visit Codes: [id number] DISCH DAY >30min DEMARCUS DAILY MD Feb 15, 2025 12:17
--- NOTE | 2025-02-15 12:17 | DVHPN2 ---
Subjective The patient seen and examined at bedside. Still complain of abdominal pain. Waiting for EGD. Patient stated it will be done at 8pm today Reviewed: Care Plan, H&P, Labs, Medications, Previous Orders, Radiology Objective Vitals Vital Signs Date Time Temp Pulse Resp B/P (MAP) Pulse Ox O2 Delivery O2 Flow Rate FiO2 02/15/25 09:00 97.7 52 18 119/60 (79) 99 97.7 02/15/25 08:00 Room Air* 0 21 Intake/Output Intake and Output 02/15/25 07:00 Intake Total 500 ml Balance 500 ml Intake Oral 300 ml IV Total 200 ml # Voids 10 General Appearance: Alert, Oriented X3, Cooperative, No acute distress HEENT: PERRLA, EOMI, Mucous membr. moist/pink Neck: Supple Lungs: Clear to auscultation, Normal air movement Chest/Breasts: Discharge, Lesions, Lumps Cardiovascular: Regular rate, Normal S1, Normal S2, No murmurs, Gallops, Rubs Abdomen: Normal bowel sounds, Soft Neuro: Cranial nerves 3-12 NL Lymph: Lymphadenopathy Psych/Mental Status: Mental status NL Medications Current Medications Medications Dose Ordered Sig/Deuce Route Start Time Stop Time Status Last Admin Dose Admin Ceftriaxone Sodium 50 ml @ 100 mls/hr DAILY@09 IV 02/12/25 09:00 02/15/25 10:11 100 MLS/HR Pantoprazole Sodium 40 mg DAILY IV 02/12/25 10:00 02/15/25 10:11 40 MG Acetaminophen/ Hydrocodone Bitart 1 tab Q4HP PRN PO 02/11/25 17:00 02/11/25 23:03 1 TAB Ondansetron HCl 4 mg Q4HP PRN IV 02/11/25 17:00 Acetaminophen 650 mg Q6HP PRN PO 02/11/25 17:00 Metronidazole 100 ml @ 100 mls/hr Q8HR IV 02/12/25 14:00 02/15/25 05:50 100 MLS/HR Laboratory Results Laboratory Tests 02/15/25 07:04 Chemistry Test 02/15/25 07:04 Calcium Level 9.1 mg/dL (8.7-10.4) Coagulation Test 02/14/25 14:03 Prothrombin Time 11.3 sec (9.3-11.8) Prothrombin Time INR 1.07 (0.9-1.15) Activated Partial Thromboplast Time 28.7 SEC (24.5-34.5) Assessment/Plan Assessment/Plan Severe abdominal pain Imaging studies showed Mesenteric panniculitis. Continuing current management. Continuing with IV Dilaudid and [place]. Continuing with empiric IV antibiotic Levaquin and Flagyl. Waiting for EGD to be done. Discharge when EGD done and patient result is normal. This medical document was created using an electronic medical record system with [employer] direct computerized dictation system. Although this document has been carefully reviewed, there may still be some phonetic and typographical errors. These areas are purely typographical due to imperfections of the software programs, and do not reflect any compromise in the patient's medical care. My Orders Orders - DEMARCUS DAILY MD Procedure Category Date Status Time Communication Order ORDERS 02/14/25 Transmitted 20:00 Discharge DISCHARGE 02/15/25 Transmitted 14:38 DEMARCUS DAILY MD Feb 15, 2025 12:17
[2025-02-15] MEDS: LIDOCAINE VISCOUS 2% 15ML UD ONE (15:00)
[2025-02-15] MEDS: fentaNYL CITRATE 100 MCG/2 ML VL ONE (15:07)
[2025-02-15] MEDS: MIDAZOLAM HCL 2MG/2ML 2ml VIAL (1mg/ml) ONE (15:07)
--- NOTE | 2025-02-15 15:55 | DVHOP2 ---
Operative Report DATE OF PROCEDURE: 02/15/25 INDICATIONS FOR THE PROCEDURE: Abdominal pain nausea anorexia heartburn not responding to medical treatment PROCEDURE PERFORMED: 1. Esophagogastroduodenoscopy and polypectomy with hot snare Esophagogastroduodenoscopy with biopsy POSTOPERATIVE DIAGNOSIS INFORMED CONSENT: The risks and benefits and alternatives were explained to the patient and informed consent was obtained. PROCEDURE IN DETAIL: The patient was kept NPO after midnight. In the endoscopy room, he was given IV fentanyl mcg.100 and Versed, 4 mg titrated slowly to get him sedated. Olympus gastroscope was passed through the oropharynx into the stomach and the duodenum, and the findings were as follows. Oropharynx within normal limit Esophagus: In the proximal esophagus almost close to the mid esophageal junction there was a small superficial nodule of about 5 mm benign-looking biopsies taken with the cold biopsy forceps 1 cm Hiatal hernia LA classification C Esophagitis distal esophagus No Esophageal ulcer No Esophageal stricture No varices Stomach: Fundus: Normal Body and antrum In the body on the greater curvature aspect there was a polyp which was pedunculated of 1 cm long removed with the help of the hot snare Polyp was friable and hence the biopsy was also done of the base of the polypectomy site Antral gastritis biopsies taken to ensure there was no H pylori or other pathology Pylorus normal Duodenum Normal Endoscopic impression Erosive esophagitis of the distal esophagus biopsies taken Antral gastritis biopsies taken Gastric polyp in the body of the stomach pedunculated 1 cm long removed by hot snare Small superficial nodule of 5 mm proximal esophagus close to the mid esophagus junction biopsies taken Suggestions Await the biopsy results Aggressive treatment with PPIs Recommend repeat evaluation of the stomach in three months to evaluate for the esophageal nodule as well as a gastric polypectomy site Symptoms persist we will recommend repeat CAT scan with oral and IV contrast as well as colonoscopy Thank you Dr. Hernández Thank you for asking me to take part in the care of this pleasant patient LESLY HERNÁNDEZ MD Feb 15, 2025 15:55
[2025-02-16] MEDS ORDERED: PANT40TA2 PO (11:06)
== END 2025-02-15 17:00 | disposition home or self-care (01) | DRG 381 ==
LOC: ER 10:04 → OVERFLOW 16:59 → WEST WING 23:10
PROVIDERS: ADMIT Internal Medicine; ATTEND Internal Medicine
PROC: 0DB28ZX Excision of Middle Esophagus, Via Natural or Artificial Opening Endoscopic, Diagnostic (ICD-10-PCS; 2025-02-15)
PROC: 0DB38ZX Excision of Lower Esophagus, Via Natural or Artificial Opening Endoscopic, Diagnostic (ICD-10-PCS; 2025-02-15)
PROC: 0DB68ZX Excision of Stomach, Via Natural or Artificial Opening Endoscopic, Diagnostic (ICD-10-PCS; 2025-02-15)
PROC: 0DB78ZX Excision of Stomach, Pylorus, Via Natural or Artificial Opening Endoscopic, Diagnostic (ICD-10-PCS; principal; 2025-02-15 13:00)
DX: K22.10 Ulcer of esophagus without bleeding (principal); K65.4 Sclerosing mesenteritis; K29.70 Gastritis, unspecified, without bleeding; K21.00 Gastro-esophageal reflux disease with esophagitis, without bleeding; K44.9 Diaphragmatic hernia without obstruction or gangrene; K31.7 Polyp of stomach and duodenum; I12.9 Hypertensive chronic kidney disease with stage 1 through stage 4 chronic kidney disease, or unspecified chronic kidney disease; K76.0 Fatty (change of) liver, not elsewhere classified; N18.9 Chronic kidney disease, unspecified; Z63.72 Alcoholism and drug addiction in family; Z90.49 Acquired absence of other specified parts of digestive tract
CPT/HCPCS: 36415; 43239; 43251; 74176; 80048; 83690; 85025; 85610; 85730; 86850; 86900; 86901; G0378; J2250; J2470; J3490